=== PATIENT | male | born 1955 | race Hispanic/Latino ===

== ENCOUNTER 2020-07-03 14:13 | Inpatient (IN) | payer MEDICARE ==
[~2020-07-03] VITALS: Ht 170.2 cm; Wt 79.4 kg
[2020-07-03] MEDS ORDERED: FUROSEMIDE 40MG VIAL ONE ×2 (14:46→23:49)
[2020-07-03] MEDS ORDERED: KCL 20 MEQ ERTAB PO ONE (14:46)
[2020-07-03 14:49] LABS: BASOPHILS % (AUTO) 0.6 % (0.0-5.0); EOSINOPHILS % (AUTO) 3.2 % (0.0-8.0); HEMATOCRIT 41.7 % (42-54); LYMPHOCYTES % (AUTO) 26.3 % (21.0-51.0); MEAN CORPUSCULAR HGB CONC 34.3 g/dL (32.0-36.0); MEAN CORPUSCULAR VOLUME 90.5 fL (79-99); MONOCYTES % (AUTO) 7.7 % (3.0-13.0); PLATELET COUNT (AUTO) 238 K/uL (130-400); RED BLOOD CELL COUNT(AUTO) 4.61 MIL/uL (4.50-6.20); RED CELL DISTRIBUTION WIDTH 12.6 % (11.0-15.5); WHITE BLOOD COUNT (AUTO) 9.6 K/uL (4.8-10.8)
[2020-07-03 15:00] LABS: POTASSIUM 4.2 mmol/L (3.5-5.1)
[2020-07-03 15:05] LABS: ALBUMIN 3.9 g/dL (3.5-5.0); BILIRUBIN,TOTAL 0.7 mg/dL (0.2-1.0); TOTAL PROTEIN, SERUM 8.9 g/dL (6.0-8.3)
[2020-07-03 15:15] LABS: B-TYPE NATRIURETIC PEPTIDE 145 pg/mL (0-100)
[2020-07-03] MEDS ORDERED: POTASSIUM CHLORIDE 10% ELIXIR 20 MEQ/15 ML UDCUP PO PRN (15:15)
[2020-07-03] MEDS ORDERED: FUROSEMIDE 40MG VIAL IV SCH (15:15)
[2020-07-03] MEDS ORDERED: KCL 20 MEQ ERTAB PO PRN (15:15)
[2020-07-03] MEDS ORDERED: POTASSIUM CHLORIDE 20MEQ/100ML 100 ML IV PRN (15:15)
[2020-07-03] MEDS ORDERED: LIDOCAINE HCL-MPF 1% 2ML VIAL IJ PRN (15:15)
[2020-07-03] MEDS ORDERED: 0.9%NACL 10ML VIAL IVP SCH (15:15)
[2020-07-03] MEDS: AZITHROMYCIN 500MG+NS 250ML 250 ML IV SCH (19:15)
[2020-07-03] MEDS: CEFTRIAXONE 1G VIAL IVP SCH (19:15)
[2020-07-03] MEDS ORDERED: AZITHROMYCIN 500MG+NS 250ML 250 ML IV ONE (20:09)
[2020-07-03] MEDS ORDERED: CEFTRIAXONE 1G VIAL ONE (20:09)
[2020-07-03] MEDS ORDERED: FAMOTIDINE 20MG VIAL IV ONE (20:10)
[2020-07-03] MEDS: FAMOTIDINE 20MG TAB PO SCH (21:00)
[2020-07-03] MEDS: FUROSEMIDE 40MG VIAL IVP SCH (22:00)
[2020-07-03] MEDS ORDERED: TEMAZEPAM 15 MG CAPSULE ONE (23:51)
[2020-07-04] VITALS (8 sets, daily range): BP systolic 109–135; BP diastolic 63–71
[2020-07-04 05:26] LABS: HEMATOCRIT 43.8 % (42-54); MEAN CORPUSCULAR HGB CONC 33.8 g/dL (32.0-36.0); MEAN CORPUSCULAR VOLUME 91.6 fL (79-99); RED BLOOD CELL COUNT(AUTO) 4.78 MIL/uL (4.50-6.20); RED CELL DISTRIBUTION WIDTH 12.5 % (11.0-15.5); WHITE BLOOD COUNT (AUTO) 10.6 K/uL (4.8-10.8)
[2020-07-04 05:31] LABS: HEMOGLOBIN A1C 5.5 % (4.0-6.0)
[2020-07-04 05:45] LABS: BILIRUBIN,TOTAL 0.7 mg/dL (0.2-1.0); CREATININE 1.1 mg/dL (0.5-1.5); POTASSIUM 3.9 mmol/L (3.5-5.1)
[2020-07-04] MEDS: FUROSEMIDE 40MG VIAL IVP SCH ×2 (07:50→13:48)
[2020-07-04] MEDS: CEFTRIAXONE 1G VIAL IVP SCH ×2 (07:50→18:00)
[2020-07-04] MEDS: FAMOTIDINE 20MG TAB PO SCH ×2 (08:38→21:51)
[2020-07-04] MEDS: ENOXAPARIN SODIUM 40 MG/0.4 ML SYRINGE SQ SCH (08:38)
[2020-07-04] MEDS: KCL 20 MEQ ERTAB PO SCH (08:38)
[2020-07-04] MEDS ORDERED: KCL 20 MEQ ERTAB PO SCH (09:00)
[2020-07-04] MEDS: AZITHROMYCIN 500MG+NS 250ML 250 ML IV SCH (18:00)
[2020-07-04] MEDS ORDERED: METOPROLOL SUCCINATE 50 MG TAB.SR.24H PO SCH (20:00)
[2020-07-04] MEDS ORDERED: ATORVASTATIN 20 MG TABLET PO SCH (21:00)
[2020-07-04] MEDS ORDERED: FUROSEMIDE 20MG VIAL IV SCH (21:00)
[2020-07-04] MEDS ORDERED: TEMAZEPAM 7.5 MG CAPSULE PO SCH (21:00)
[2020-07-04] MEDS: CLOPIDOGREL 75MG TAB PO SCH (21:49)
[2020-07-05 04:51] LABS: MEAN CORPUSCULAR HEMOGLOBIN 31.2 pg (27.0-33.0); MEAN CORPUSCULAR HGB CONC 34.5 g/dL (32.0-36.0); MEAN CORPUSCULAR VOLUME 90.3 fL (79-99); RED BLOOD CELL COUNT(AUTO) 4.65 MIL/uL (4.50-6.20); RED CELL DISTRIBUTION WIDTH 12.2 % (11.0-15.5); WHITE BLOOD COUNT (AUTO) 10.5 K/uL (4.8-10.8)
[2020-07-05 05:05] LABS: ALBUMIN 3.8 g/dL (3.5-5.0); BILIRUBIN,TOTAL 0.6 mg/dL (0.2-1.0); CREATININE 1.2 mg/dL (0.5-1.5); POTASSIUM 3.8 mmol/L (3.5-5.1); TOTAL PROTEIN, SERUM 8.7 g/dL (6.0-8.3)
[2020-07-05 05:16] LABS: ABG BASE EXCESS 2.5 mmol/L (-2.0-3.0); ABG HCO3 26.6 mmol/L (21.0-28.0); ABG OXYGEN SATURATION 95.4 % (95.0-99.0); ABG PCO2 39 mmHg (35-48)
[2020-07-05] MEDS ORDERED: IPRATROPIUM/ALBUTEROL SULFATE 3 ML SOLUTION IH SCH (06:00)
[2020-07-05] MEDS: SOLU-MEDROL 40MG VIAL IVP SCH ×2 (06:00→06:17)
[2020-07-05 06:11] VITALS: BP 106/56
[2020-07-05] MEDS: CEFTRIAXONE 1G VIAL IVP SCH (06:17)
[2020-07-05] MEDS ORDERED: IOHEXOL-350 50ML VIAL IV ONE (06:39)
[2020-07-05] MEDS ORDERED: CEFTRIAXONE 1G VIAL IVP SCH (06:45)
[2020-07-05] MEDS: FAMOTIDINE 20MG TAB PO SCH (07:38)
[2020-07-05] MEDS: CLOPIDOGREL 75MG TAB PO SCH (07:38)
[2020-07-05] MEDS: KCL 20 MEQ ERTAB PO SCH (07:38)
[2020-07-05] MEDS: ENOXAPARIN SODIUM 40 MG/0.4 ML SYRINGE SQ SCH (07:39)
[2020-07-05 08:00] VITALS: BP 106/59
[2020-07-05] MEDS ORDERED: SOLU-MEDROL 40MG VIAL IVP SCH (09:00)
[2020-07-05 12:16] VITALS: BP 142/67
[2020-07-05] MEDS ORDERED: DOXY100T2 PO (12:47)
[2020-07-05] MEDS ORDERED: METH4TAB3 PO (12:47)
[2020-07-05] MEDS ORDERED: BUDESONIDE 0.5 MG/2 ML INH IH SCH (18:00)
[2020-07-05] MEDS ORDERED: ATORVASTATIN 20 MG TABLET PO SCH (21:00)
== END 2020-07-05 14:31 | disposition home or self-care (01) | DRG 291 ==
LOC: EDH 14:13 → EDHIP 14:14 → 4CH 07-04 01:42
PROVIDERS: ADMIT Internal Medicine; ATTEND Internal Medicine
DX: I11.0 Hypertensive heart disease with heart failure (principal); J18.9 Pneumonia, unspecified organism; J84.10 Pulmonary fibrosis, unspecified; I50.9 Heart failure, unspecified; Z20.822 Contact with and (suspected) exposure to COVID-19; E78.00 Pure hypercholesterolemia, unspecified; E78.5 Hyperlipidemia, unspecified; I25.10 Atherosclerotic heart disease of native coronary artery without angina pectoris; Z87.891 Personal history of nicotine dependence; Z91.19 Patient's noncompliance with other medical treatment and regimen; Z95.1 Presence of aortocoronary bypass graft
CPT/HCPCS: 36415; 36600; 71045; 71270; 80053; 80061; 82803; 83036; 83735; 83880; 84145; 85025; 85027; 85378; 87426; 93005; 93306; 93356; G0378; J0456; J0696; J1650; J1940; J2920; J3490; Q9967

== ENCOUNTER 2020-09-20 15:28 | Inpatient (IN) | payer MEDICARE ==
[~2020-09-20] VITALS: Ht 172.7 cm; Wt 74.8 kg
[~2020-09-20 15:28] MED LIST: DOXY100T2 PO; METH4TAB3 PO
[2020-09-20 15:58] LABS: ABG BASE EXCESS 1.6 mmol/L (-2.0-3.0); ABG HCO3 24.3 mmol/L (21.0-28.0); ABG OXYGEN SATURATION 85.3 % (95.0-99.0); ABG PCO2 33 mmHg (35-48)
[2020-09-20 16:04] LABS: BASOPHILS % (AUTO) 0.2 % (0.0-5.0); HEMATOCRIT 45.7 % (42-54); LYMPHOCYTES % (AUTO) 6.6 % (21.0-51.0); MEAN CORPUSCULAR HEMOGLOBIN 30.9 pg (27.0-33.0); MEAN CORPUSCULAR HGB CONC 34.4 g/dL (32.0-36.0); MONOCYTES % (AUTO) 4.4 % (3.0-13.0); NEUTROPHILS % (AUTO) 87.5 % (40.0-77.0); PLATELET COUNT (AUTO) 230 K/uL (130-400); RED BLOOD CELL COUNT(AUTO) 5.08 MIL/uL (4.50-6.20); WHITE BLOOD COUNT (AUTO) 12.9 K/uL (4.8-10.8)
[2020-09-20] MEDS ORDERED: CEFTRIAXONE SODIUM 2 GM VIAL ONE (16:15)
[2020-09-20] MEDS ORDERED: SODIUM CHLORIDE 0.9% 100 ML IV ONE (16:15)
[2020-09-20] MEDS ORDERED: DEXAMETHASONE SOD PHOSPHATE 10MG/ML 1ML VIAL ONE (16:15)
[2020-09-20 16:23] LABS: ALBUMIN 3.8 g/dL (3.5-5.0); BILIRUBIN,TOTAL 0.8 mg/dL (0.2-1.0); TOTAL PROTEIN, SERUM 9.3 g/dL (6.0-8.3)
[2020-09-20 16:32] LABS: B-TYPE NATRIURETIC PEPTIDE 34 pg/mL (0-100)
[2020-09-20] MEDS: CEFTRIAXONE SODIUM 1 GM IVP SCH (17:00)
[2020-09-20] MEDS ORDERED: DOXYCYCLINE 100MG+NS 250ML IV SCH (17:00)
[2020-09-20] MEDS ORDERED: DEXAMETHASONE SOD PHOSPHATE 4 MG/ML 1ML VIAL IVP SCH (17:00)
[2020-09-20] MEDS ORDERED: ERGOCALCIFEROL (VITAMIN D2) 50,000 UNIT CAPSULE PO ONE (17:00)
[2020-09-20] MEDS ORDERED: PHARMACY COMMUNICATION**REMDESIVIR ORDER MISC SCH (17:15)
[2020-09-20] MEDS: DOXYCYCLINE 100MG+NS 250ML 250 ML IV SCH (17:30)
[2020-09-20] MEDS ORDERED: DOXYCYCLINE 100MG+NS 250ML 250 ML IV ONE (18:15)
[2020-09-20] MEDS ORDERED: ERGOCALCIFEROL (VITAMIN D2) 50,000 UNIT CAPSULE ONE (18:23)
[2020-09-20] MEDS ORDERED: REMDESIVIR (EUA) 520 200 MG in SODIUM CHLORIDE 0.9% 250 ML IV SCH (20:00)
[2020-09-20] MEDS ORDERED: COMPOUND IV REFRIGERATED 1 EACH IVSOLN MISC PRN (20:00)
[2020-09-20] MEDS: ACETYLCYSTEINE 600 MG CAPSULE PO SCH (21:00)
[2020-09-20] MEDS ORDERED: ACETYLCYSTEINE 600 MG CAPSULE ONE (21:50)
[2020-09-21] VITALS (17 sets, daily range): BP systolic 110–158; BP diastolic 52–89
[2020-09-21] MEDS: REMDESIVIR LABS MISC SCH (06:00)
[2020-09-21 06:14] LABS: BASOPHILS % (AUTO) 0.1 % (0.0-5.0); HEMATOCRIT 43.4 % (42-54); LYMPHOCYTES % (AUTO) 8.1 % (21.0-51.0); MEAN CORPUSCULAR HGB CONC 33.4 g/dL (32.0-36.0); MEAN CORPUSCULAR VOLUME 89.9 fL (79-99); MONOCYTES % (AUTO) 5.3 % (3.0-13.0); NEUTROPHILS % (AUTO) 85.4 % (40.0-77.0); PLATELET COUNT (AUTO) 234 K/uL (130-400); RED BLOOD CELL COUNT(AUTO) 4.83 MIL/uL (4.50-6.20); RED CELL DISTRIBUTION WIDTH 12.9 % (11.0-15.5)
[2020-09-21 06:44] LABS: ALBUMIN 3.1 g/dL (3.5-5.0); BILIRUBIN,TOTAL 0.5 mg/dL (0.2-1.0); CRP QUANTITATIVE 17.7 mg/L (0.00-9.0); POTASSIUM 4.3 mmol/L (3.5-5.1); TOTAL PROTEIN, SERUM 7.4 g/dL (6.0-8.3)
[2020-09-21] MEDS: CEFTRIAXONE SODIUM 1 GM IVP SCH (06:44)
[2020-09-21] MEDS: DOXYCYCLINE 100MG+NS 250ML 250 ML IV SCH (06:44)
[2020-09-21] MEDS ORDERED: ATOR40TA69 PO (07:44)
[2020-09-21] MEDS ORDERED: METO25TA6 PO (07:44)
[2020-09-21] MEDS ORDERED: VITAD50000 PO (07:44)
[2020-09-21] MEDS ORDERED: CLOP75TA32 PO (07:44)
[2020-09-21] MEDS ORDERED: ASPI-1005 PO (07:44)
[2020-09-21] MEDS: METHYLPREDNISOLONE SOD SUCC 125MG/2ML VIAL IVP SCH ×2 (08:24→20:17)
[2020-09-21] MEDS: PANTOPRAZOLE 40 MG/VIAL IVP SCH (08:24)
[2020-09-21] MEDS: ACETYLCYSTEINE 600 MG CAPSULE PO SCH ×2 (08:25→20:17)
[2020-09-21] MEDS ORDERED: ENOXAPARIN SODIUM 40 MG/0.4 ML SYRINGE SQ SCH (09:00)
[2020-09-21] MEDS ORDERED: ASCORBIC ACID 500 MG TAB PO SCH (09:00)
[2020-09-21] MEDS ORDERED: ZINC SULFATE 220 CAPSULE PO SCH (09:00)
[2020-09-21] MEDS ORDERED: IOHEXOL 350 MG/ML 100ML INFUS..BTL IV ONE (09:23)
[2020-09-21] MEDS: METOPROLOL TARTRATE 25 MG TAB PO SCH (20:16)
[2020-09-21] MEDS: REMDESIVIR (EUA) 520 100 MG in SODIUM CHLORIDE 0.9% 250 ML IV SCH (20:17)
[2020-09-21] MEDS: ENOXAPARIN SODIUM 40 MG/0.4 ML SYRINGE SQ SCH (20:18)
[2020-09-22 03:56] VITALS: BP 130/55
[2020-09-22 04:26] LABS: BASOPHILS % (AUTO) 0.1 % (0.0-5.0); HEMATOCRIT 42.4 % (42-54); LYMPHOCYTES % (AUTO) 9.1 % (21.0-51.0); MEAN CORPUSCULAR HEMOGLOBIN 30.3 pg (27.0-33.0); MEAN CORPUSCULAR HGB CONC 33.5 g/dL (32.0-36.0); MEAN CORPUSCULAR VOLUME 90.6 fL (79-99); MONOCYTES % (AUTO) 3.7 % (3.0-13.0); NEUTROPHILS % (AUTO) 85.7 % (40.0-77.0); PLATELET COUNT (AUTO) 224 K/uL (130-400); RED BLOOD CELL COUNT(AUTO) 4.68 MIL/uL (4.50-6.20); RED CELL DISTRIBUTION WIDTH 12.8 % (11.0-15.5); WHITE BLOOD COUNT (AUTO) 16.6 K/uL (4.8-10.8)
[2020-09-22 04:58] LABS: ALBUMIN 2.9 g/dL (3.5-5.0); BILIRUBIN,TOTAL 0.4 mg/dL (0.2-1.0); CRP QUANTITATIVE 10.1 mg/L (0.00-9.0); MAGNESIUM 2.3 mg/dL (1.80-2.40); POTASSIUM 4.7 mmol/L (3.5-5.1); TOTAL PROTEIN, SERUM 7.4 g/dL (6.0-8.3)
[2020-09-22] MEDS: REMDESIVIR LABS MISC SCH (06:00)
[2020-09-22 07:55] VITALS: BP 117/62
[2020-09-22] MEDS: ASPIRIN 81MG TAB.CHEW PO SCH (09:34)
[2020-09-22] MEDS: ENOXAPARIN SODIUM 40 MG/0.4 ML SYRINGE SQ SCH (09:35)
[2020-09-22] MEDS: PANTOPRAZOLE 40 MG/VIAL IVP SCH (09:35)
[2020-09-22] MEDS: ATORVASTATIN CALCIUM 40 MG TABLET PO SCH (09:36)
[2020-09-22] MEDS: CLOPIDOGREL BISULFATE 75 MG TAB PO SCH (09:36)
[2020-09-22] MEDS: METHYLPREDNISOLONE SOD SUCC 125MG/2ML VIAL IVP SCH ×2 (09:36→20:48)
[2020-09-22] MEDS: ACETYLCYSTEINE 600 MG CAPSULE PO SCH ×2 (09:36→20:48)
[2020-09-22] MEDS: METOPROLOL TARTRATE 25 MG TAB PO SCH ×2 (09:51→20:11)
[2020-09-22 12:01] VITALS: BP 130/62
[2020-09-22 16:25] VITALS: BP 117/66
[2020-09-22] MEDS ORDERED: GLUCAGON 1MG KIT 1 MG ML IM PRN (16:30)
[2020-09-22] MEDS ORDERED: DEXTROSE 50%-WATER 50 ML DISP.SYRIN IV PRN (16:30)
[2020-09-22] MEDS: INSULIN HUMULIN R 100 UNIT/ML 3ML SQ SCH ×2 (16:44→20:59)
[2020-09-22 19:08] VITALS: BP 95/45
[2020-09-22] MEDS: REMDESIVIR (EUA) 520 100 MG in SODIUM CHLORIDE 0.9% 250 ML IV SCH (20:50)
[2020-09-22] MEDS: INSULIN GLARGINE 100 UNITS/ML 10 ML VIAL SQ SCH (20:52)
[2020-09-22 23:19] VITALS: BP 110/49
[2020-09-23 03:55] VITALS: BP 131/72
[2020-09-23 04:28] LABS: BASOPHILS % (AUTO) 0.1 % (0.0-5.0); HEMATOCRIT 41.8 % (42-54); LYMPHOCYTES % (AUTO) 5.6 % (21.0-51.0); MEAN CORPUSCULAR HEMOGLOBIN 29.6 pg (27.0-33.0); MEAN CORPUSCULAR HGB CONC 33.3 g/dL (32.0-36.0); MEAN CORPUSCULAR VOLUME 89.1 fL (79-99); MONOCYTES % (AUTO) 2.9 % (3.0-13.0); NEUTROPHILS % (AUTO) 90.2 % (40.0-77.0); NUCLEATED RED BLOOD CELLS 0.1 % (0.0-0.19); PLATELET COUNT (AUTO) 231 K/uL (130-400); RED BLOOD CELL COUNT(AUTO) 4.69 MIL/uL (4.50-6.20); RED CELL DISTRIBUTION WIDTH 12.9 % (11.0-15.5); WHITE BLOOD COUNT (AUTO) 17.3 K/uL (4.8-10.8)
[2020-09-23 04:59] LABS: ALBUMIN 2.7 g/dL (3.5-5.0); BILIRUBIN,TOTAL 0.5 mg/dL (0.2-1.0); CREATININE 0.9 mg/dL (0.5-1.5); CRP QUANTITATIVE 3.3 mg/L (0.00-9.0); POTASSIUM 4.1 mmol/L (3.5-5.1); TOTAL PROTEIN, SERUM 6.8 g/dL (6.0-8.3)
[2020-09-23] MEDS: REMDESIVIR LABS MISC SCH (06:00)
[2020-09-23] MEDS: INSULIN HUMULIN R 100 UNIT/ML 3ML SQ SCH ×6 (06:23→20:31)
[2020-09-23 07:32] VITALS: BP 120/61
[2020-09-23] MEDS: CLOPIDOGREL BISULFATE 75 MG TAB PO SCH (08:15)
[2020-09-23] MEDS: ASPIRIN 81MG TAB.CHEW PO SCH (08:15)
[2020-09-23] MEDS: ENOXAPARIN SODIUM 40 MG/0.4 ML SYRINGE SQ SCH (08:16)
[2020-09-23] MEDS: METHYLPREDNISOLONE SOD SUCC 125MG/2ML VIAL IVP SCH ×2 (08:16→21:39)
[2020-09-23] MEDS: PANTOPRAZOLE 40 MG/VIAL IVP SCH (08:16)
[2020-09-23] MEDS: ACETYLCYSTEINE 600 MG CAPSULE PO SCH ×2 (08:16→21:30)
[2020-09-23] MEDS: ATORVASTATIN CALCIUM 40 MG TABLET PO SCH (08:16)
[2020-09-23] MEDS: METOPROLOL TARTRATE 25 MG TAB PO SCH ×2 (09:00→21:30)
[2020-09-23 09:52] LABS: HEMOGLOBIN A1C 6.4 % (4.0-6.0)
[2020-09-23 12:20] VITALS: BP 109/57
[2020-09-23 15:59] VITALS: BP 136/68
[2020-09-23 20:20] VITALS: BP 138/66
[2020-09-23] MEDS: INSULIN GLARGINE 100 UNITS/ML 10 ML VIAL SQ SCH (20:47)
[2020-09-23] MEDS: REMDESIVIR (EUA) 520 100 MG in SODIUM CHLORIDE 0.9% 250 ML IV SCH (21:39)
[2020-09-24] VITALS (7 sets, daily range): BP systolic 111–142; BP diastolic 42–72
[2020-09-24 05:18] LABS: BASOPHILS % (AUTO) 0.1 % (0.0-5.0); HEMATOCRIT 41.6 % (42-54); LYMPHOCYTES % (AUTO) 4.6 % (21.0-51.0); MEAN CORPUSCULAR HEMOGLOBIN 29.8 pg (27.0-33.0); MEAN CORPUSCULAR HGB CONC 33.4 g/dL (32.0-36.0); MEAN CORPUSCULAR VOLUME 89.3 fL (79-99); MONOCYTES % (AUTO) 3.8 % (3.0-13.0); NEUTROPHILS % (AUTO) 90.5 % (40.0-77.0); PLATELET COUNT (AUTO) 239 K/uL (130-400); RED BLOOD CELL COUNT(AUTO) 4.66 MIL/uL (4.50-6.20); RED CELL DISTRIBUTION WIDTH 12.9 % (11.0-15.5)
[2020-09-24 05:37] LABS: ALANINE AMINOTRANSFERASE 26 U/L (12-78); ALBUMIN 2.7 g/dL (3.5-5.0); ASPARTATE AMINOTRANSFERASE 19 U/L (10-37); BILIRUBIN,TOTAL 0.4 mg/dL (0.2-1.0); CARBON DIOXIDE 26 mmol/L (21-32); CHLORIDE 105 mmol/L (101-111); CREATININE 0.8 mg/dL (0.5-1.5); CRP QUANTITATIVE < 2.00 mg/L (0.00-9.0); GLOMERULAR FILTR. RATE CALC 103 mL/min (>60); GLUCOSE,RANDOM 113 mg/dL (70-105); LACTATE DEHYDROGENASE 435 U/L (81-234); POTASSIUM 4.2 mmol/L (3.5-5.1); SODIUM SERUM 138 mmol/L (136-145); TOTAL PROTEIN, SERUM 6.6 g/dL (6.0-8.3); UREA NITROGEN, BLOOD 30 mg/dL (7-18)
[2020-09-24] MEDS: INSULIN HUMULIN R 100 UNIT/ML 3ML SQ SCH ×7 (05:44→21:00)
[2020-09-24] MEDS: REMDESIVIR LABS MISC SCH (06:31)
[2020-09-24] MEDS: ASPIRIN 81MG TAB.CHEW PO SCH (08:52)
[2020-09-24] MEDS: CLOPIDOGREL BISULFATE 75 MG TAB PO SCH (08:52)
[2020-09-24] MEDS: ACETYLCYSTEINE 600 MG CAPSULE PO SCH ×2 (08:52→21:11)
[2020-09-24] MEDS: PANTOPRAZOLE 40 MG/VIAL IVP SCH (08:53)
[2020-09-24] MEDS: ENOXAPARIN SODIUM 40 MG/0.4 ML SYRINGE SQ SCH (08:53)
[2020-09-24] MEDS: ATORVASTATIN CALCIUM 40 MG TABLET PO SCH (08:53)
[2020-09-24] MEDS: METHYLPREDNISOLONE SOD SUCC 125MG/2ML VIAL IVP SCH ×2 (08:54→21:10)
[2020-09-24] MEDS: METOPROLOL TARTRATE 25 MG TAB PO SCH ×2 (09:00→21:11)
[2020-09-24] MEDS: REMDESIVIR (EUA) 520 100 MG in SODIUM CHLORIDE 0.9% 250 ML IV SCH (20:26)
[2020-09-24] MEDS: INSULIN GLARGINE 100 UNITS/ML 10 ML VIAL SQ SCH (21:18)
[2020-09-25 04:29] VITALS: BP 122/67
[2020-09-25 04:50] LABS: HEMATOCRIT 40.8 % (42-54); MEAN CORPUSCULAR HGB CONC 33.6 g/dL (32.0-36.0); MEAN CORPUSCULAR VOLUME 89.5 fL (79-99); RED BLOOD CELL COUNT(AUTO) 4.56 MIL/uL (4.50-6.20); RED CELL DISTRIBUTION WIDTH 12.7 % (11.0-15.5); WHITE BLOOD COUNT (AUTO) 13.8 K/uL (4.8-10.8)
[2020-09-25 05:01] LABS: CREATININE 0.8 mg/dL (0.5-1.5); CRP QUANTITATIVE 3.9 mg/L (0.00-9.0); POTASSIUM 4.4 mmol/L (3.5-5.1)
[2020-09-25 07:17] LABS: ALBUMIN 2.7 g/dL (3.5-5.0); BILIRUBIN,DIRECT 0.2 mg/dL (0.0-0.3); BILIRUBIN,TOTAL 0.5 mg/dL (0.2-1.0); TOTAL PROTEIN, SERUM 6.5 g/dL (6.0-8.3)
[2020-09-25] MEDS: INSULIN HUMULIN R 100 UNIT/ML 3ML SQ SCH ×7 (07:30→21:27)
[2020-09-25 08:44] VITALS: BP 104/47
[2020-09-25] MEDS: METOPROLOL TARTRATE 25 MG TAB PO SCH ×2 (09:00→21:19)
[2020-09-25] MEDS: ACETYLCYSTEINE 600 MG CAPSULE PO SCH ×2 (09:03→21:19)
[2020-09-25] MEDS: CLOPIDOGREL BISULFATE 75 MG TAB PO SCH (09:04)
[2020-09-25] MEDS: ASPIRIN 81MG TAB.CHEW PO SCH (09:04)
[2020-09-25] MEDS: ATORVASTATIN CALCIUM 40 MG TABLET PO SCH (09:04)
[2020-09-25] MEDS: ENOXAPARIN SODIUM 40 MG/0.4 ML SYRINGE SQ SCH (09:04)
[2020-09-25] MEDS: METHYLPREDNISOLONE SOD SUCC 125MG/2ML VIAL IVP SCH ×2 (09:05→21:19)
[2020-09-25] MEDS: PANTOPRAZOLE 40 MG/VIAL IVP SCH (09:05)
[2020-09-25 12:03] VITALS: BP 109/49
[2020-09-25 16:43] VITALS: BP 113/58
[2020-09-25 20:28] VITALS: BP 102/55
[2020-09-25] MEDS: INSULIN GLARGINE 100 UNITS/ML 10 ML VIAL SQ SCH (21:28)
[2020-09-26] VITALS (7 sets, daily range): BP systolic 103–125; BP diastolic 48–68
[2020-09-26] MEDS: INSULIN HUMULIN R 100 UNIT/ML 3ML SQ SCH ×7 (06:19→19:58)
[2020-09-26] MEDS: PANTOPRAZOLE 40 MG/VIAL IVP SCH (08:27)
[2020-09-26] MEDS: ACETYLCYSTEINE 600 MG CAPSULE PO SCH ×2 (08:28→19:56)
[2020-09-26] MEDS: CLOPIDOGREL BISULFATE 75 MG TAB PO SCH (08:28)
[2020-09-26] MEDS: ASPIRIN 81MG TAB.CHEW PO SCH (08:28)
[2020-09-26] MEDS: ATORVASTATIN CALCIUM 40 MG TABLET PO SCH (08:28)
[2020-09-26] MEDS: METHYLPREDNISOLONE SOD SUCC 125MG/2ML VIAL IVP SCH ×2 (08:28→19:56)
[2020-09-26] MEDS: METOPROLOL TARTRATE 25 MG TAB PO SCH ×2 (08:29→20:44)
[2020-09-26] MEDS: ENOXAPARIN SODIUM 40 MG/0.4 ML SYRINGE SQ SCH (08:32)
[2020-09-26] MEDS ORDERED: POLYETHYLENE GLYCOL 3350 17 GM POWD.PACK PO SCH (10:00)
[2020-09-26] MEDS ORDERED: MAG HYDROX/AL HYDROX/SIMETH ES 30 ML SUSP UDCUP PO SCH (10:00)
[2020-09-26 10:20] LABS: BASOPHILS % (AUTO) 0.1 % (0.0-5.0); HEMATOCRIT 44.3 % (42-54); LYMPHOCYTES % (AUTO) 3.1 % (21.0-51.0); MEAN CORPUSCULAR HEMOGLOBIN 30.1 pg (27.0-33.0); MEAN CORPUSCULAR HGB CONC 33.4 g/dL (32.0-36.0); MONOCYTES % (AUTO) 2.9 % (3.0-13.0); NEUTROPHILS % (AUTO) 93.1 % (40.0-77.0); PLATELET COUNT (AUTO) 234 K/uL (130-400); RED BLOOD CELL COUNT(AUTO) 4.92 MIL/uL (4.50-6.20); RED CELL DISTRIBUTION WIDTH 12.9 % (11.0-15.5); WHITE BLOOD COUNT (AUTO) 16.6 K/uL (4.8-10.8)
[2020-09-26 10:30] LABS: CREATININE 0.9 mg/dL (0.5-1.5); POTASSIUM 4.8 mmol/L (3.5-5.1)
[2020-09-26] MEDS: INSULIN GLARGINE 100 UNITS/ML 10 ML VIAL SQ SCH (19:59)
[2020-09-27 03:52] VITALS: BP 129/72
[2020-09-27 04:40] LABS: HEMATOCRIT 42.3 % (42-54); MEAN CORPUSCULAR HEMOGLOBIN 30.4 pg (27.0-33.0); MEAN CORPUSCULAR HGB CONC 33.3 g/dL (32.0-36.0); MEAN CORPUSCULAR VOLUME 91.2 fL (79-99); RED BLOOD CELL COUNT(AUTO) 4.64 MIL/uL (4.50-6.20); RED CELL DISTRIBUTION WIDTH 12.9 % (11.0-15.5); WHITE BLOOD COUNT (AUTO) 18.8 K/uL (4.8-10.8)
[2020-09-27 04:49] LABS: POTASSIUM 4.9 mmol/L (3.5-5.1)
[2020-09-27] MEDS: INSULIN HUMULIN R 100 UNIT/ML 3ML SQ SCH ×7 (06:08→20:34)
[2020-09-27 08:00] VITALS: BP 120/39
[2020-09-27] MEDS: METOPROLOL TARTRATE 25 MG TAB PO SCH ×2 (09:00→20:27)
[2020-09-27] MEDS: ASPIRIN 81MG TAB.CHEW PO SCH (09:18)
[2020-09-27] MEDS: CLOPIDOGREL BISULFATE 75 MG TAB PO SCH (09:19)
[2020-09-27] MEDS: ATORVASTATIN CALCIUM 40 MG TABLET PO SCH (09:19)
[2020-09-27] MEDS: ACETYLCYSTEINE 600 MG CAPSULE PO SCH ×2 (09:19→20:25)
[2020-09-27] MEDS: METHYLPREDNISOLONE SOD SUCC 125MG/2ML VIAL IVP SCH ×2 (09:20→18:02)
[2020-09-27] MEDS: ENOXAPARIN SODIUM 40 MG/0.4 ML SYRINGE SQ SCH (09:20)
[2020-09-27] MEDS: PANTOPRAZOLE 40 MG/VIAL IVP SCH (09:20)
[2020-09-27] MEDS: POLYETHYLENE GLYCOL 3350 17 GM POWD.PACK PO SCH (09:30)
[2020-09-27 12:00] VITALS: BP 116/56
[2020-09-27 16:06] VITALS: BP 112/56
[2020-09-27 19:03] VITALS: BP 121/52
[2020-09-27] MEDS: INSULIN GLARGINE 100 UNITS/ML 10 ML VIAL SQ SCH (20:32)
[2020-09-27 23:35] VITALS: BP 115/59
[2020-09-28] MEDS: METHYLPREDNISOLONE SOD SUCC 125MG/2ML VIAL IVP SCH ×4 (00:42→17:17)
[2020-09-28 03:05] VITALS: BP 104/48
[2020-09-28 04:39] LABS: BASOPHILS % (AUTO) 0.1 % (0.0-5.0); HEMATOCRIT 41.5 % (42-54); LYMPHOCYTES % (AUTO) 3.2 % (21.0-51.0); MEAN CORPUSCULAR HEMOGLOBIN 30.5 pg (27.0-33.0); MEAN CORPUSCULAR VOLUME 89.6 fL (79-99); MONOCYTES % (AUTO) 3.1 % (3.0-13.0); NEUTROPHILS % (AUTO) 92.7 % (40.0-77.0); PLATELET COUNT (AUTO) 200 K/uL (130-400); RED BLOOD CELL COUNT(AUTO) 4.63 MIL/uL (4.50-6.20); WHITE BLOOD COUNT (AUTO) 17.6 K/uL (4.8-10.8)
[2020-09-28 04:55] LABS: CREATININE 0.7 mg/dL (0.5-1.5); POTASSIUM 4.6 mmol/L (3.5-5.1)
[2020-09-28] MEDS: INSULIN HUMULIN R 100 UNIT/ML 3ML SQ SCH ×7 (06:41→20:35)
[2020-09-28] MEDS ORDERED: POTASSIUM CHLORIDE 20MEQ/100ML 100 ML IV PRN (07:15)
[2020-09-28] MEDS ORDERED: LIDOCAINE HCL-MPF 1% 2ML VIAL IV PRN (07:15)
[2020-09-28 08:00] VITALS: BP 111/46
[2020-09-28] MEDS: ATORVASTATIN CALCIUM 40 MG TABLET PO SCH (08:43)
[2020-09-28] MEDS: METOPROLOL TARTRATE 25 MG TAB PO SCH ×2 (08:43→20:29)
[2020-09-28] MEDS: POLYETHYLENE GLYCOL 3350 17 GM POWD.PACK PO SCH (08:43)
[2020-09-28] MEDS: PANTOPRAZOLE 40 MG/VIAL IVP SCH (08:43)
[2020-09-28] MEDS: ACETYLCYSTEINE 600 MG CAPSULE PO SCH ×2 (08:43→20:29)
[2020-09-28] MEDS: ASPIRIN 81MG TAB.CHEW PO SCH (08:43)
[2020-09-28] MEDS: ENOXAPARIN SODIUM 40 MG/0.4 ML SYRINGE SQ SCH (08:44)
[2020-09-28] MEDS: CLOPIDOGREL BISULFATE 75 MG TAB PO SCH (08:44)
[2020-09-28 12:00] VITALS: BP 120/61
[2020-09-28 16:00] VITALS: BP 94/44
[2020-09-28] MEDS: INSULIN GLARGINE 100 UNITS/ML 10 ML VIAL SQ SCH (20:31)
[2020-09-28 20:34] VITALS: BP 134/69
[2020-09-29] VITALS (7 sets, daily range): BP systolic 118–138; BP diastolic 57–78
[2020-09-29] MEDS: METHYLPREDNISOLONE SOD SUCC 125MG/2ML VIAL IVP SCH ×5 (00:47→23:48)
[2020-09-29] MEDS: INSULIN HUMULIN R 100 UNIT/ML 3ML SQ SCH ×7 (06:40→20:20)
[2020-09-29 08:19] LABS: BASOPHILS % (AUTO) 0.1 % (0.0-5.0); LYMPHOCYTES % (AUTO) 3.3 % (21.0-51.0); MEAN CORPUSCULAR HEMOGLOBIN 30.9 pg (27.0-33.0); MEAN CORPUSCULAR HGB CONC 33.6 g/dL (32.0-36.0); MEAN CORPUSCULAR VOLUME 91.9 fL (79-99); MONOCYTES % (AUTO) 3.9 % (3.0-13.0); NEUTROPHILS % (AUTO) 92.1 % (40.0-77.0); PLATELET COUNT (AUTO) 197 K/uL (130-400); RED BLOOD CELL COUNT(AUTO) 4.57 MIL/uL (4.50-6.20); RED CELL DISTRIBUTION WIDTH 13.1 % (11.0-15.5); WHITE BLOOD COUNT (AUTO) 17.1 K/uL (4.8-10.8)
[2020-09-29 08:52] LABS: ALBUMIN 2.8 g/dL (3.5-5.0); BILIRUBIN,TOTAL 0.6 mg/dL (0.2-1.0); CREATININE 0.8 mg/dL (0.5-1.5); POTASSIUM 5.1 mmol/L (3.5-5.1); TOTAL PROTEIN, SERUM 6.3 g/dL (6.0-8.3)
[2020-09-29] MEDS: ASPIRIN 81MG TAB.CHEW PO SCH (09:07)
[2020-09-29] MEDS: POLYETHYLENE GLYCOL 3350 17 GM POWD.PACK PO SCH (09:07)
[2020-09-29] MEDS: PANTOPRAZOLE 40 MG/VIAL IVP SCH (09:08)
[2020-09-29] MEDS: ATORVASTATIN CALCIUM 40 MG TABLET PO SCH (09:08)
[2020-09-29] MEDS: CLOPIDOGREL BISULFATE 75 MG TAB PO SCH (09:08)
[2020-09-29] MEDS: ACETYLCYSTEINE 600 MG CAPSULE PO SCH ×2 (09:08→20:01)
[2020-09-29] MEDS: METOPROLOL TARTRATE 25 MG TAB PO SCH ×2 (09:08→20:01)
[2020-09-29] MEDS: ENOXAPARIN SODIUM 40 MG/0.4 ML SYRINGE SQ SCH (09:09)
[2020-09-29 15:16] LABS: INR 1.1 (0.85-1.15); PROTHROMBIN TIME 11.9 SEC (9.6-11.6)
[2020-09-29 15:17] LABS: PARTIAL THROMBOPLASTIN TIME 25.2 SEC (26.3-35.5)
[2020-09-29] MEDS: FLUNISOLIDE 25 MCG/SPRAY 25 ML NASAL SPRY EN SCH ×2 (15:49→20:12)
[2020-09-29] MEDS: INSULIN GLARGINE 100 UNITS/ML 10 ML VIAL SQ SCH (20:19)
[2020-09-30 04:06] VITALS: BP 116/61
[2020-09-30] MEDS: METHYLPREDNISOLONE SOD SUCC 125MG/2ML VIAL IVP SCH ×3 (05:40→17:39)
[2020-09-30] MEDS: INSULIN HUMULIN R 100 UNIT/ML 3ML SQ SCH ×7 (06:41→21:20)
[2020-09-30 06:43] LABS: BASOPHILS % (AUTO) 0.1 % (0.0-5.0); HEMATOCRIT 40.5 % (42-54); MEAN CORPUSCULAR HEMOGLOBIN 29.6 pg (27.0-33.0); MEAN CORPUSCULAR HGB CONC 32.8 g/dL (32.0-36.0); MONOCYTES % (AUTO) 3.5 % (3.0-13.0); NEUTROPHILS % (AUTO) 92.6 % (40.0-77.0); PLATELET COUNT (AUTO) 187 K/uL (130-400); RED CELL DISTRIBUTION WIDTH 13.1 % (11.0-15.5); WHITE BLOOD COUNT (AUTO) 16.6 K/uL (4.8-10.8)
[2020-09-30 07:04] LABS: CREATININE 0.9 mg/dL (0.5-1.5); MAGNESIUM 2.1 mg/dL (1.80-2.40); POTASSIUM 4.8 mmol/L (3.5-5.1)
[2020-09-30 08:00] VITALS: BP 122/68
[2020-09-30] MEDS: ACETYLCYSTEINE 600 MG CAPSULE PO SCH ×2 (09:28→20:22)
[2020-09-30] MEDS: POLYETHYLENE GLYCOL 3350 17 GM POWD.PACK PO SCH (09:29)
[2020-09-30] MEDS: METOPROLOL TARTRATE 25 MG TAB PO SCH ×2 (09:29→20:22)
[2020-09-30] MEDS: PANTOPRAZOLE 40 MG/VIAL IVP SCH (09:29)
[2020-09-30] MEDS: ATORVASTATIN CALCIUM 40 MG TABLET PO SCH (09:29)
[2020-09-30] MEDS: FLUNISOLIDE 25 MCG/SPRAY 25 ML NASAL SPRY EN SCH ×3 (09:29→20:23)
[2020-09-30] MEDS: ASPIRIN 81MG TAB.CHEW PO SCH (09:29)
[2020-09-30 12:00] VITALS: BP 118/60
[2020-09-30 16:00] VITALS: BP 126/78
[2020-09-30 20:00] VITALS: BP 143/69
[2020-09-30] MEDS: INSULIN GLARGINE 100 UNITS/ML 10 ML VIAL SQ SCH (21:21)
[2020-10-01] VITALS (7 sets, daily range): BP systolic 120–144; BP diastolic 54–78
[2020-10-01] MEDS: METHYLPREDNISOLONE SOD SUCC 125MG/2ML VIAL IVP SCH ×5 (00:55→22:58)
[2020-10-01 04:01] LABS: BASOPHILS % (AUTO) 0.1 % (0.0-5.0); HEMATOCRIT 37.4 % (42-54); LYMPHOCYTES % (AUTO) 2.8 % (21.0-51.0); MEAN CORPUSCULAR HEMOGLOBIN 30.7 pg (27.0-33.0); MEAN CORPUSCULAR HGB CONC 33.7 g/dL (32.0-36.0); MEAN CORPUSCULAR VOLUME 91.2 fL (79-99); NEUTROPHILS % (AUTO) 91.4 % (40.0-77.0); PLATELET COUNT (AUTO) 141 K/uL (130-400); RED CELL DISTRIBUTION WIDTH 13.2 % (11.0-15.5); WHITE BLOOD COUNT (AUTO) 14.9 K/uL (4.8-10.8)
[2020-10-01 04:21] LABS: ALBUMIN 2.5 g/dL (3.5-5.0); BILIRUBIN,TOTAL 0.5 mg/dL (0.2-1.0); CREATININE 0.8 mg/dL (0.5-1.5); MAGNESIUM 2.2 mg/dL (1.80-2.40); PHOSPHORUS 3.4 mg/dL (2.5-4.9); POTASSIUM 4.7 mmol/L (3.5-5.1); TOTAL PROTEIN, SERUM 5.6 g/dL (6.0-8.3)
[2020-10-01] MEDS: INSULIN HUMULIN R 100 UNIT/ML 3ML SQ SCH ×7 (06:33→21:33)
[2020-10-01] MEDS: ACETYLCYSTEINE 600 MG CAPSULE PO SCH ×2 (08:46→20:07)
[2020-10-01] MEDS: PANTOPRAZOLE 40 MG/VIAL IVP SCH (08:46)
[2020-10-01] MEDS: ASPIRIN 81MG TAB.CHEW PO SCH (08:47)
[2020-10-01] MEDS: POLYETHYLENE GLYCOL 3350 17 GM POWD.PACK PO SCH (08:47)
[2020-10-01] MEDS: ATORVASTATIN CALCIUM 40 MG TABLET PO SCH (08:47)
[2020-10-01] MEDS: FLUNISOLIDE 25 MCG/SPRAY 25 ML NASAL SPRY EN SCH ×3 (08:48→20:08)
[2020-10-01] MEDS: METOPROLOL TARTRATE 25 MG TAB PO SCH ×2 (08:48→20:07)
[2020-10-01] MEDS ORDERED: BIOTENE 44.3 ML SOLUTION MM PRN (17:30)
[2020-10-01] MEDS: INSULIN GLARGINE 100 UNITS/ML 10 ML VIAL SQ SCH (20:09)
[2020-10-02 03:02] VITALS: BP 129/51
[2020-10-02 04:21] LABS: HEMATOCRIT 39.6 % (42-54); MEAN CORPUSCULAR HGB CONC 33.3 g/dL (32.0-36.0); RED BLOOD CELL COUNT(AUTO) 4.4 MIL/uL (4.50-6.20); WHITE BLOOD COUNT (AUTO) 16.1 K/uL (4.8-10.8)
[2020-10-02 04:40] LABS: ALANINE AMINOTRANSFERASE 46 U/L (12-78); ALBUMIN 2.6 g/dL (3.5-5.0); ASPARTATE AMINOTRANSFERASE 21 U/L (10-37); BILIRUBIN,TOTAL 0.5 mg/dL (0.2-1.0); CARBON DIOXIDE 30 mmol/L (21-32); CHLORIDE 103 mmol/L (101-111); CREATININE 0.9 mg/dL (0.5-1.5); GLOMERULAR FILTR. RATE CALC 90 mL/min (>60); GLUCOSE,RANDOM 194 mg/dL (70-105); POTASSIUM 4.5 mmol/L (3.5-5.1); SODIUM SERUM 138 mmol/L (136-145); TOTAL PROTEIN, SERUM 5.9 g/dL (6.0-8.3); UREA NITROGEN, BLOOD 37 mg/dL (7-18)
[2020-10-02 04:41] LABS: CRP QUANTITATIVE < 2.00 mg/L (0.00-9.0)
[2020-10-02] MEDS: METHYLPREDNISOLONE SOD SUCC 125MG/2ML VIAL IVP SCH ×3 (05:12→16:48)
[2020-10-02] MEDS: INSULIN HUMULIN R 100 UNIT/ML 3ML SQ SCH ×7 (06:16→21:35)
[2020-10-02 07:37] VITALS: BP 148/70
[2020-10-02] MEDS: ASPIRIN 81MG TAB.CHEW PO SCH (08:15)
[2020-10-02] MEDS: METOPROLOL TARTRATE 25 MG TAB PO SCH ×2 (08:15→21:24)
[2020-10-02] MEDS: ATORVASTATIN CALCIUM 40 MG TABLET PO SCH (08:15)
[2020-10-02] MEDS: PANTOPRAZOLE 40 MG/VIAL IVP SCH (08:15)
[2020-10-02] MEDS: ACETYLCYSTEINE 600 MG CAPSULE PO SCH ×2 (08:15→21:32)
[2020-10-02] MEDS: FLUNISOLIDE 25 MCG/SPRAY 25 ML NASAL SPRY EN SCH ×3 (08:16→21:54)
[2020-10-02] MEDS: POLYETHYLENE GLYCOL 3350 17 GM POWD.PACK PO SCH (08:31)
[2020-10-02 11:27] VITALS: BP 132/58
[2020-10-02] MEDS ORDERED: ENOXAPARIN SODIUM 40 MG/0.4 ML SYRINGE SQ SCH (15:00)
[2020-10-02 15:37] VITALS: BP 133/54
[2020-10-02] MEDS ORDERED: MAGNESIUM 2GM PREMIX 50ML 50 ML IV PRN (19:45)
[2020-10-02 19:49] VITALS: BP 168/84
[2020-10-02] MEDS: INSULIN GLARGINE 100 UNITS/ML 10 ML VIAL SQ SCH (21:34)
[2020-10-02 23:24] VITALS: BP 121/60
[2020-10-03] MEDS: METHYLPREDNISOLONE SOD SUCC 125MG/2ML VIAL IVP SCH ×4 (00:24→17:56)
[2020-10-03 03:53] VITALS: BP 142/64
[2020-10-03 04:54] LABS: HEMATOCRIT 39.8 % (42-54); MEAN CORPUSCULAR HEMOGLOBIN 30.7 pg (27.0-33.0); MEAN CORPUSCULAR HGB CONC 33.7 g/dL (32.0-36.0); MEAN CORPUSCULAR VOLUME 91.3 fL (79-99); RED BLOOD CELL COUNT(AUTO) 4.36 MIL/uL (4.50-6.20); RED CELL DISTRIBUTION WIDTH 13.2 % (11.0-15.5); WHITE BLOOD COUNT (AUTO) 14.2 K/uL (4.8-10.8)
[2020-10-03 05:03] LABS: ALANINE AMINOTRANSFERASE 49 U/L (12-78); ALBUMIN 2.8 g/dL (3.5-5.0); ASPARTATE AMINOTRANSFERASE 22 U/L (10-37); BILIRUBIN,TOTAL 0.7 mg/dL (0.2-1.0); CARBON DIOXIDE 31 mmol/L (21-32); CHLORIDE 105 mmol/L (101-111); CREATININE 0.7 mg/dL (0.5-1.5); GLOMERULAR FILTR. RATE CALC 120 mL/min (>60); GLUCOSE,RANDOM 157 mg/dL (70-105); POTASSIUM 4.6 mmol/L (3.5-5.1); SODIUM SERUM 141 mmol/L (136-145); UREA NITROGEN, BLOOD 38 mg/dL (7-18)
[2020-10-03 05:05] LABS: CRP QUANTITATIVE < 2.00 mg/L (0.00-9.0)
[2020-10-03] MEDS: INSULIN HUMULIN R 100 UNIT/ML 3ML SQ SCH ×7 (05:55→21:31)
[2020-10-03] MEDS: POLYETHYLENE GLYCOL 3350 17 GM POWD.PACK PO SCH (08:43)
[2020-10-03] MEDS: PANTOPRAZOLE 40 MG/VIAL IVP SCH (08:43)
[2020-10-03] MEDS: ASPIRIN 81MG TAB.CHEW PO SCH (08:43)
[2020-10-03] MEDS: METOPROLOL TARTRATE 25 MG TAB PO SCH ×2 (08:43→21:17)
[2020-10-03] MEDS: ACETYLCYSTEINE 600 MG CAPSULE PO SCH ×2 (08:43→21:17)
[2020-10-03] MEDS: ATORVASTATIN CALCIUM 40 MG TABLET PO SCH (08:43)
[2020-10-03] MEDS: ENOXAPARIN SODIUM 40 MG/0.4 ML SYRINGE SQ SCH (08:44)
[2020-10-03 08:59] VITALS: BP 115/55
[2020-10-03] MEDS ORDERED: ASPIRIN 325MG EC TAB 325 MG TABLET.DR PO SCH (09:00)
[2020-10-03] MEDS ORDERED: ENOXAPARIN SODIUM 40 MG/0.4 ML SYRINGE SQ SCH (09:00)
[2020-10-03] MEDS: FLUNISOLIDE 25 MCG/SPRAY 25 ML NASAL SPRY EN SCH ×3 (09:55→21:17)
[2020-10-03 12:30] VITALS: BP 125/64
[2020-10-03 16:30] VITALS: BP 146/63
[2020-10-03 20:10] VITALS: BP 151/81
[2020-10-03] MEDS: INSULIN GLARGINE 100 UNITS/ML 10 ML VIAL SQ SCH (21:32)
[2020-10-03 23:53] VITALS: BP 149/61
[2020-10-04] MEDS: METHYLPREDNISOLONE SOD SUCC 125MG/2ML VIAL IVP SCH ×4 (01:44→17:51)
[2020-10-04 04:22] VITALS: BP 153/68
[2020-10-04] MEDS: INSULIN HUMULIN R 100 UNIT/ML 3ML SQ SCH ×7 (08:20→21:52)
[2020-10-04] MEDS: PANTOPRAZOLE 40 MG/VIAL IVP SCH (08:21)
[2020-10-04] MEDS: ENOXAPARIN SODIUM 40 MG/0.4 ML SYRINGE SQ SCH (08:22)
[2020-10-04] MEDS: METOPROLOL TARTRATE 25 MG TAB PO SCH ×2 (08:22→20:46)
[2020-10-04] MEDS: ATORVASTATIN CALCIUM 40 MG TABLET PO SCH (08:23)
[2020-10-04] MEDS: ASPIRIN 81MG TAB.CHEW PO SCH (08:23)
[2020-10-04] MEDS: POLYETHYLENE GLYCOL 3350 17 GM POWD.PACK PO SCH (08:23)
[2020-10-04] MEDS: ACETYLCYSTEINE 600 MG CAPSULE PO SCH ×2 (08:23→20:46)
[2020-10-04] MEDS: FLUNISOLIDE 25 MCG/SPRAY 25 ML NASAL SPRY EN SCH ×3 (08:37→22:12)
[2020-10-04 08:43] VITALS: BP 148/65
[2020-10-04 12:49] VITALS: BP 132/63
[2020-10-04 16:30] VITALS: BP 143/65
[2020-10-04 19:56] VITALS: BP 145/63
[2020-10-04] MEDS: INSULIN GLARGINE 100 UNITS/ML 10 ML VIAL SQ SCH (21:53)
[2020-10-04 23:56] VITALS: BP 142/70
[2020-10-05] MEDS: METHYLPREDNISOLONE SOD SUCC 125MG/2ML VIAL IVP SCH ×4 (00:29→17:38)
[2020-10-05 03:43] VITALS: BP 126/55
[2020-10-05 05:00] LABS: BASOPHILS % (AUTO) 0.1 % (0.0-5.0); HEMATOCRIT 38.9 % (42-54); LYMPHOCYTES % (AUTO) 2.1 % (21.0-51.0); MEAN CORPUSCULAR HEMOGLOBIN 30.7 pg (27.0-33.0); MEAN CORPUSCULAR HGB CONC 33.4 g/dL (32.0-36.0); MEAN CORPUSCULAR VOLUME 91.7 fL (79-99); MONOCYTES % (AUTO) 3.2 % (3.0-13.0); NEUTROPHILS % (AUTO) 93.7 % (40.0-77.0); PLATELET COUNT (AUTO) 79 K/uL (130-400); RED BLOOD CELL COUNT(AUTO) 4.24 MIL/uL (4.50-6.20); RED CELL DISTRIBUTION WIDTH 13.4 % (11.0-15.5); WHITE BLOOD COUNT (AUTO) 19.3 K/uL (4.8-10.8)
[2020-10-05 05:24] LABS: CREATININE 0.7 mg/dL (0.5-1.5); POTASSIUM 4.3 mmol/L (3.5-5.1)
[2020-10-05] MEDS: INSULIN HUMULIN R 100 UNIT/ML 3ML SQ SCH ×7 (06:35→22:41)
[2020-10-05 07:00] VITALS: BP 154/71
[2020-10-05] MEDS: PANTOPRAZOLE 40 MG/VIAL IVP SCH (09:39)
[2020-10-05] MEDS: POLYETHYLENE GLYCOL 3350 17 GM POWD.PACK PO SCH (09:39)
[2020-10-05] MEDS: ATORVASTATIN CALCIUM 40 MG TABLET PO SCH (09:39)
[2020-10-05] MEDS: ASPIRIN 81MG TAB.CHEW PO SCH (09:40)
[2020-10-05] MEDS: ACETYLCYSTEINE 600 MG CAPSULE PO SCH ×2 (09:40→20:45)
[2020-10-05] MEDS: METOPROLOL TARTRATE 25 MG TAB PO SCH ×2 (09:41→20:45)
[2020-10-05] MEDS: ENOXAPARIN SODIUM 40 MG/0.4 ML SYRINGE SQ SCH (09:41)
[2020-10-05] MEDS: FLUNISOLIDE 25 MCG/SPRAY 25 ML NASAL SPRY EN SCH (09:42)
[2020-10-05 12:00] VITALS: BP 149/77
[2020-10-05 16:00] VITALS: BP 122/49
[2020-10-05 19:33] VITALS: BP 128/60
[2020-10-05] MEDS: INSULIN GLARGINE 100 UNITS/ML 10 ML VIAL SQ SCH (22:42)
[2020-10-05 23:44] VITALS: BP 116/49
[2020-10-06] MEDS: METHYLPREDNISOLONE SOD SUCC 125MG/2ML VIAL IVP SCH ×4 (01:04→18:30)
[2020-10-06 03:27] VITALS: BP 137/69
[2020-10-06 04:08] LABS: BASOPHILS % (AUTO) 0.1 % (0.0-5.0); HEMATOCRIT 38.7 % (42-54); LYMPHOCYTES % (AUTO) 1.6 % (21.0-51.0); MEAN CORPUSCULAR HEMOGLOBIN 30.1 pg (27.0-33.0); MEAN CORPUSCULAR HGB CONC 33.3 g/dL (32.0-36.0); MEAN CORPUSCULAR VOLUME 90.4 fL (79-99); MONOCYTES % (AUTO) 2.9 % (3.0-13.0); NEUTROPHILS % (AUTO) 94.4 % (40.0-77.0); PLATELET COUNT (AUTO) 62 K/uL (130-400); RED BLOOD CELL COUNT(AUTO) 4.28 MIL/uL (4.50-6.20); RED CELL DISTRIBUTION WIDTH 13.7 % (11.0-15.5); WHITE BLOOD COUNT (AUTO) 20.4 K/uL (4.8-10.8)
[2020-10-06 04:13] LABS: CARBON DIOXIDE 28 mmol/L (21-32); CHLORIDE 109 mmol/L (101-111); CREATININE 0.9 mg/dL (0.5-1.5); GLOMERULAR FILTR. RATE CALC 90 mL/min (>60); GLUCOSE,RANDOM 190 mg/dL (70-105); POTASSIUM 4.5 mmol/L (3.5-5.1); SODIUM SERUM 142 mmol/L (136-145); UREA NITROGEN, BLOOD 40 mg/dL (7-18)
[2020-10-06 04:15] LABS: CRP QUANTITATIVE < 2.00 mg/L (0.00-9.0)
[2020-10-06] MEDS: INSULIN HUMULIN R 100 UNIT/ML 3ML SQ SCH ×7 (05:44→21:00)
[2020-10-06 08:15] VITALS: BP 148/62
[2020-10-06] MEDS: POLYETHYLENE GLYCOL 3350 17 GM POWD.PACK PO SCH (09:00)
[2020-10-06] MEDS: PANTOPRAZOLE 40 MG/VIAL IVP SCH (09:13)
[2020-10-06] MEDS: ATORVASTATIN CALCIUM 40 MG TABLET PO SCH (09:14)
[2020-10-06] MEDS: ASPIRIN 81MG TAB.CHEW PO SCH (09:14)
[2020-10-06] MEDS: METOPROLOL TARTRATE 25 MG TAB PO SCH ×2 (09:14→21:12)
[2020-10-06] MEDS: ACETYLCYSTEINE 600 MG CAPSULE PO SCH ×2 (09:15→21:11)
[2020-10-06 12:02] VITALS: BP 124/51
[2020-10-06 16:17] VITALS: BP 123/61
[2020-10-06 18:58] VITALS: BP 121/56
[2020-10-06] MEDS: INSULIN GLARGINE 100 UNITS/ML 10 ML VIAL SQ SCH (21:00)
[2020-10-06 23:32] VITALS: BP 140/56
[2020-10-07] MEDS: METHYLPREDNISOLONE SOD SUCC 125MG/2ML VIAL IVP SCH ×4 (01:25→18:03)
[2020-10-07 04:54] VITALS: BP 170/73
[2020-10-07 05:02] LABS: BASOPHILS % (AUTO) 0.1 % (0.0-5.0); HEMATOCRIT 41.7 % (42-54); LYMPHOCYTES % (AUTO) 1.3 % (21.0-51.0); MEAN CORPUSCULAR HEMOGLOBIN 30.8 pg (27.0-33.0); MEAN CORPUSCULAR HGB CONC 33.6 g/dL (32.0-36.0); MEAN CORPUSCULAR VOLUME 91.9 fL (79-99); MONOCYTES % (AUTO) 2.2 % (3.0-13.0); NEUTROPHILS % (AUTO) 95.6 % (40.0-77.0); PLATELET COUNT (AUTO) 56 K/uL (130-400); RED BLOOD CELL COUNT(AUTO) 4.54 MIL/uL (4.50-6.20); RED CELL DISTRIBUTION WIDTH 13.9 % (11.0-15.5); WHITE BLOOD COUNT (AUTO) 23.3 K/uL (4.8-10.8)
[2020-10-07 05:20] LABS: ALBUMIN 2.9 g/dL (3.5-5.0); BILIRUBIN,TOTAL 1.5 mg/dL (0.2-1.0); CREATININE 0.7 mg/dL (0.5-1.5); CRP QUANTITATIVE 8.5 mg/L (0.00-9.0); MAGNESIUM 2.1 mg/dL (1.80-2.40); POTASSIUM 4.1 mmol/L (3.5-5.1); TOTAL PROTEIN, SERUM 6.4 g/dL (6.0-8.3)
[2020-10-07 05:33] LABS: ABG BASE EXCESS 1.4 mmol/L (-2.0-3.0); ABG HCO3 25.8 mmol/L (21.0-28.0); ABG OXYGEN SATURATION 77.4 % (95.0-99.0); ABG PCO2 40 mmHg (35-48)
[2020-10-07] MEDS ORDERED: MORPHINE SULFATE 2 MG/ML 1ML SYG IVP ONE (05:45)
[2020-10-07] MEDS ORDERED: HYDRALAZINE HCL 20 MG/ML VIAL IV PRN (05:45)
[2020-10-07] MEDS ORDERED: NITROGLYCERIN 1GM/1 INCH PACKET TD PRN (06:00)
[2020-10-07 06:24] LABS: CREATINE KINASE, TOTAL 89 U/L (21-232); MYOGLOBIN 162 ng/mL (10-92); TROPONIN I < 0.04 ng/mL (0.00-0.06)
[2020-10-07] MEDS: INSULIN HUMULIN R 100 UNIT/ML 3ML SQ SCH ×7 (07:30→20:13)
[2020-10-07 07:42] VITALS: BP 174/73
[2020-10-07] MEDS: POLYETHYLENE GLYCOL 3350 17 GM POWD.PACK PO SCH (07:49)
[2020-10-07] MEDS: ATORVASTATIN CALCIUM 40 MG TABLET PO SCH (07:49)
[2020-10-07] MEDS: ASPIRIN 81MG TAB.CHEW PO SCH (07:49)
[2020-10-07] MEDS: ACETYLCYSTEINE 600 MG CAPSULE PO SCH ×2 (07:49→20:04)
[2020-10-07] MEDS: METOPROLOL TARTRATE 25 MG TAB PO SCH ×2 (07:49→20:04)
[2020-10-07] MEDS: METRONIDAZOLE 500MG/100ML BAG 100 ML IVPB SCH ×3 (08:02→21:45)
[2020-10-07] MEDS: PANTOPRAZOLE 40 MG/VIAL IVP SCH (08:02)
[2020-10-07] MEDS: MORPHINE SULFATE 2 MG/ML 1ML SYG IVP PRN ×3 (10:09→15:21)
[2020-10-07] MEDS ORDERED: DEXMEDETOMIDINE HCL 400 MCG in SODIUM CHLORIDE 0.9% 100 ML IV SCH (12:30)
[2020-10-07] MEDS ORDERED: LORAZEPAM 2 MG/ML 1 ML VIAL IVP PRN (12:30)
[2020-10-07] MEDS: LORAZEPAM 2 MG/ML 1 ML VIAL IVP PRN ×4 (14:53→18:04)
[2020-10-07 16:01] VITALS: BP 134/64
[2020-10-07 19:47] VITALS: BP 79/50
[2020-10-07] MEDS: INSULIN GLARGINE 100 UNITS/ML 10 ML VIAL SQ SCH (21:49)
[2020-10-07 22:00] VITALS: BP 101/51
[2020-10-07] MEDS ORDERED: DEXMEDETOMIDINE HCL 200 MCG/2 ML VIAL IV ONE (22:44)
[2020-10-07] MEDS ORDERED: SODIUM CHLORIDE 0.9% 100 ML IV ONE (22:45)
[2020-10-07 23:00] VITALS: BP 104/62
[2020-10-08] VITALS (8 sets, daily range): BP systolic 83–105; BP diastolic 42–59
[2020-10-08] MEDS: METHYLPREDNISOLONE SOD SUCC 125MG/2ML VIAL IVP SCH ×2 (00:18→05:35)
[2020-10-08] MEDS: MORPHINE SULFATE 2 MG/ML 1ML SYG IVP PRN ×2 (00:22→05:40)
[2020-10-08] MEDS: LORAZEPAM 2 MG/ML 1 ML VIAL IVP PRN (00:35)
[2020-10-08 04:31] LABS: BASOPHILS % (AUTO) 0.1 % (0.0-5.0); HEMATOCRIT 45.3 % (42-54); LYMPHOCYTES % (AUTO) 2.3 % (21.0-51.0); MEAN CORPUSCULAR HEMOGLOBIN 29.8 pg (27.0-33.0); MEAN CORPUSCULAR HGB CONC 31.3 g/dL (32.0-36.0); MEAN CORPUSCULAR VOLUME 95.2 fL (79-99); MONOCYTES % (AUTO) 2.6 % (3.0-13.0); NEUTROPHILS % (AUTO) 94.2 % (40.0-77.0); PLATELET COUNT (AUTO) 57 K/uL (130-400); RED BLOOD CELL COUNT(AUTO) 4.76 MIL/uL (4.50-6.20); RED CELL DISTRIBUTION WIDTH 14.8 % (11.0-15.5); WHITE BLOOD COUNT (AUTO) 19.3 K/uL (4.8-10.8)
[2020-10-08 04:44] LABS: CREATININE 2.8 mg/dL (0.5-1.5)
[2020-10-08] MEDS: INSULIN HUMULIN R 100 UNIT/ML 3ML SQ SCH (05:10)
[2020-10-08] MEDS: METRONIDAZOLE 500MG/100ML BAG 100 ML IVPB SCH (05:35)
[2020-10-08] MEDS ORDERED: SODIUM POLYSTYRENE SULFONATE 15 GM/60 ML ML ONE (06:38)
[2020-10-08] MEDS ORDERED: SODIUM POLYSTYRENE SULFONATE 15 GM/60 ML ML PO SCH (06:45)
== END 2020-10-08 08:10 | disposition expired | DRG 177 ==
LOC: EDH 15:28 → EDHIP 16:47 → 2AH 09-21 05:17 → 2BH 10-07 21:01
PROVIDERS: ADMIT Internal Medicine; ATTEND Internal Medicine
PROC: XW033E5 Introduction of Remdesivir Anti-infective into Peripheral Vein, Percutaneous Approach, New Technology Group 5 (ICD-10-PCS; principal; 2020-09-20)
PROC: 5A0935A Assistance with Respiratory Ventilation, Less than 24 Consecutive Hours, High Flow/Velocity Cannula (ICD-10-PCS; 2020-09-25)
PROC: 5A0935A Assistance with Respiratory Ventilation, Less than 24 Consecutive Hours, High Flow/Velocity Cannula (ICD-10-PCS; 2020-10-02)
PROC: 5A0935A Assistance with Respiratory Ventilation, Less than 24 Consecutive Hours, High Flow/Velocity Cannula (ICD-10-PCS; 2020-10-03)
PROC: 5A0935A Assistance with Respiratory Ventilation, Less than 24 Consecutive Hours, High Flow/Velocity Cannula (ICD-10-PCS; 2020-10-04)
PROC: 5A0935A Assistance with Respiratory Ventilation, Less than 24 Consecutive Hours, High Flow/Velocity Cannula (ICD-10-PCS; 2020-10-05)
PROC: 5A09357 Assistance with Respiratory Ventilation, Less than 24 Consecutive Hours, Continuous Positive Airway Pressure (ICD-10-PCS; 2020-10-06)
PROC: 5A0935A Assistance with Respiratory Ventilation, Less than 24 Consecutive Hours, High Flow/Velocity Cannula (ICD-10-PCS; 2020-10-06)
PROC: 5A09357 Assistance with Respiratory Ventilation, Less than 24 Consecutive Hours, Continuous Positive Airway Pressure (ICD-10-PCS; 2020-10-07)
PROC: 5A0935A Assistance with Respiratory Ventilation, Less than 24 Consecutive Hours, High Flow/Velocity Cannula (ICD-10-PCS; 2020-10-07)
PROC: 5A0935A Assistance with Respiratory Ventilation, Less than 24 Consecutive Hours, High Flow/Velocity Cannula (ICD-10-PCS; 2020-10-08)
DX: U07.1 COVID-19 (principal); J12.82 Pneumonia due to coronavirus disease 2019; J96.21 Acute and chronic respiratory failure with hypoxia; I50.32 Chronic diastolic (congestive) heart failure; E44.0 Moderate protein-calorie malnutrition; J44.0 Chronic obstructive pulmonary disease with (acute) lower respiratory infection; J84.10 Pulmonary fibrosis, unspecified; I25.10 Atherosclerotic heart disease of native coronary artery without angina pectoris; R73.9 Hyperglycemia, unspecified; I11.0 Hypertensive heart disease with heart failure; E78.5 Hyperlipidemia, unspecified; D69.6 Thrombocytopenia, unspecified; R04.0 Epistaxis; T38.0X5A Adverse effect of glucocorticoids and synthetic analogues, initial encounter; D72.829 Elevated white blood cell count, unspecified; Z51.5 Encounter for palliative care; Z66 Do not resuscitate; Z68.28 Body mass index [BMI] 28.0-28.9, adult; Z79.02 Long term (current) use of antithrombotics/antiplatelets; Z99.81 Dependence on supplemental oxygen; Z87.891 Personal history of nicotine dependence; Z95.1 Presence of aortocoronary bypass graft; Y92.89 Other specified places as the place of occurrence of the external cause
CPT/HCPCS: 36415; 36600; 71045; 71250; 71275; 74018; 80048; 80053; 80076; 82435; 82550; 82728; 82803; 82947; 82948; 83036; 83605; 83615; 83735; 83874; 83880; 84100; 84132; 84145; 84295; 84484; 85018; 85025; 85027; 85378; 85610; 85730; 86140; 87040; 87426; 87804; 93005; 93970; 94660; 97039; 99291; C9113; G0378; J0696; J1100; J1650; J1815; J2060; J2930; J3490; J7050; Q9967